=== PATIENT | female | born 1980 | race American Indian/Alaskan Native ===

== ENCOUNTER 2019-05-25 10:56 | Inpatient (IN) | payer MEDICARE ==
[2019-05-25] MEDS ORDERED: oxyCODONE /ACETAMINOPHEN 5-325MG TAB PO PRN (11:55)
[2019-05-25] MEDS ORDERED: ACETAMINOPHEN 325 MG TAB PO PRN (11:55)
[2019-05-25] MEDS ORDERED: D5W/0.2% NACL 1,000 ML IV SCH (14:00)
--- NOTE | 2019-05-25 14:55 | XRay Report ---
ABDOMEN, 2 VIEWS INDICATION / CLINICAL INFORMATION: ABDOMINAL PAIN, N V. COMPARISON: None available. FINDINGS: The bowel gas pattern is normal. Moderate amount retained stool is present within the colon. No free air. No abnormal calcifications identified. Visualized osseous structures are within normal limits. IMPRESSION: Probable mild constipation. Signer Name: Janette Mcginnis MD Signed: 05/25/2019 2:50 PM Workstation Name: [id number]
[2019-05-25] MEDS: HYDROmorphone 1 MG/1 ML INJ IV PRN ×3 (15:31→23:20)
[2019-05-25] MEDS: diphenhydrAMINE 50 MG/ML VIAL IV PRN ×3 (15:31→23:19)
[2019-05-25] MEDS: MECLIZINE 25 MG TAB PO SCH ×2 (15:32→20:48)
[2019-05-25] MEDS: ONDANSETRON 4 MG/2 ML INJ IV PRN ×2 (15:32→22:29)
[2019-05-25] MEDS: D5W/0.2% NACL 1,000 ML IV SCH ×2 (15:33→23:16)
[2019-05-25 15:36] LABS: Alanine Aminotransferase 11 units/L (7-56); Albumin 3.7 g/dL (3.9-5); BUN/Creatinine Ratio 12; Blood Urea Nitrogen 7 mg/dL (7-17); Calcium 8.6 mg/dL (8.4-10.2); Hemolysis Index 19
[2019-05-25 16:01] LABS: Hematocrit 34.3 % (30.3-42.9); Mean Corpuscular HGB Conc 32 % (30-34); Mean Corpuscular Volume 74 fl (79-97); Red Blood Count 4.62 M/mm3 (3.65-5.03)
[2019-05-25 16:02] LABS: Platelet Count 655 K/mm3 (140-440); Red Cell Distribution Width 30.6 % (13.2-15.2)
[2019-05-25 17:03] LABS: Basophils % (Manual) 0 % (0.0-1.8); Eosinophils % (Manual) 0 % (0.0-4.3); Total Cells Counted 100
[2019-05-25 17:04] LABS: Anisocytosis 1+; Dimorphic RBC Yes; Hypochromasia 1+; Schistocytes 1+; Sickle Cells Rare
[2019-05-25 17:05] LABS: Target Cells 1+
[2019-05-25] MEDS: oxyCODONE ER 20 MG TAB PO SCH (22:29)
[2019-05-26] MEDS: HYDROmorphone 1 MG/1 ML INJ IV PRN ×9 (03:13→21:40)
[2019-05-26] MEDS: diphenhydrAMINE 50 MG/ML VIAL IV PRN ×9 (03:13→21:40)
[2019-05-26] MEDS: D5W/0.2% NACL 1,000 ML IV SCH ×5 (03:14→22:33)
[2019-05-26] MEDS: ONDANSETRON 4 MG/2 ML INJ IV PRN ×3 (06:26→18:20)
[2019-05-26] MEDS: MECLIZINE 25 MG TAB PO SCH ×3 (08:03→20:49)
[2019-05-26] MEDS: oxyCODONE ER 20 MG TAB PO SCH ×2 (09:27→22:32)
[2019-05-26] MEDS ORDERED: PROMETHAZINE 25 MG TAB PO PRN (11:31)
--- NOTE | 2019-05-26 15:33 | History and Physical Report ---
History of Present Illness Date of examination: 05/25/19 Date of admission: 05/25/19 13:37 Chief complaint: ABD pain, diffuse joint pain, intractable N/V, vertigo.Also today complaints of right ear ache. History of present illness: As above, patient presented to the office, with complaints as above.She was admitted to the hospital, for sxs management, and control.Once patient feels better, she will be d/c homeasap, in the mid of covid 19 pandemic. Past History Past Medical History: anemia Social history: no significant social history, lives with family Family history: no significant family history Medications and Allergies Allergies Allergy/AdvReac Type Severity Reaction Status Date / Time acetaminophen [From Lortab] Allergy BREAKOUT Verified 02/19/15 07:35 W/ WHELPS hydrocodone bitartrate Allergy BREAKOUT Verified 02/19/15 07:35 [From Lortab] W/ WHELPS ketorolac tromethamine Allergy BREAKOUT Verified 02/19/15 07:35 [From Toradol] W/ WHELPS ON BODY meperidine HCl [From Demerol] Allergy Seizure Verified 02/19/15 07:35 Penicillins Allergy Swelling/WHELPS Verified 02/19/15 07:35 ON BODY Home Medications Medication Instructions Recorded Confirmed Last Taken Type Oxycodone HCl [Oxycontin] 40 mg PO BID 02/19/15 05/25/19 04/22/15 05:30 History 40 mg Promethazine [Phenergan TAB] 25 mg PO Q6HR PRN 02/19/15 05/25/19 04/21/15 22:00 History 25 mg oxyCODONE /ACETAMINOPHEN [Percocet 1 tab PO Q4-6H PRN 02/19/15 05/25/19 04/22/15 05:30 History 5/325 mg] Ciprofloxacin HCl [Ciprofloxacin 500 mg PO BID 04/22/15 05/25/19 04/21/15 22:00 History TAB] guaiFENesin [Mucinex] 600 mg PO Q12H PRN 04/22/15 05/25/19 04/21/15 22:00 History Active Meds: Active Medications Acetaminophen (Tylenol) 650 mg PO Q8H PRN PRN Reason: Pain MILD(1-3) Diphenhydramine HCl (Benadryl) 12.5 mg IV Q3H PRN PRN Reason: Itching Last Admin: 05/26/19 15:22 Dose: 12.5 mg Documented by: Hydromorphone HCl (Dilaudid) 2 mg IV Q3H PRN PRN Reason: Pain , Severe (7-10) Last Admin: 05/26/19 15:22 Dose: 2 mg Documented by: Dextrose/Sodium Chloride (D5ns 0.2%) 1,000 mls @ 250 mls/hr IV DIRECT [facility] Last Admin: 05/26/19 14:06 Dose: 250 mls/hr Documented by: Meclizine HCl (Antivert) 25 mg PO TID [facility] Last Admin: 05/26/19 13:59 Dose: 25 mg Documented by: Ondansetron HCl (Zofran) 4 mg IV Q6H PRN PRN Reason: Nausea And Vomiting Last Admin: 05/26/19 12:31 Dose: 4 mg Documented by: Oxycodone HCl (Oxycontin) 40 mg PO Q12HR [facility] Last Admin: 05/26/19 09:27 Dose: 40 mg Documented by: Oxycodone/Acetaminophen (Percocet 5/325) 2 tab PO Q6H PRN PRN Reason: Pain, Moderate (4-6) Promethazine HCl (Phenergan) 25 mg PO Q6H PRN PRN Reason: Nausea And Vomiting Sodium Chloride (Sodium Chloride Flush Syringe 10 Ml) 10 ml IV BID [facility] Last Admin: 05/26/19 09:33 Dose: 10 ml Documented by: Sodium Chloride (Sodium Chloride Flush Syringe 10 Ml) 10 ml IV PRN PRN PRN Reason: LINE FLUSH Last Admin: 05/26/19 06:29 Dose: 10 ml Documented by: Review of Systems Constitutional: fatigue, weakness, malaise, chronic pain Eyes: bilateral: other (vertigo.) Ears, nose, mouth and throat: ear pain, nasal congestion, sinus pressure Breasts: deferred Cardiovascular: syncope Gastrointestinal: nausea, vomiting Musculoskeletal: low back pain Neurological: gait dysfunction Exam - Constitutional Vitals: Temp Pulse Resp BP Pulse Ox 98.2 F 71 16 104/46 98 05/26/19 11:12 05/26/19 11:12 05/26/19 11:12 05/26/19 11:12 05/26/19 11:12 General appearance: Present: mild distress, well-nourished - EENT Eyes: Present: PERRL ENT: hearing intact, clear oral mucosa - Neck Neck: Present: supple, normal ROM - Respiratory Respiratory effort: normal Respiratory: bilateral: CTA - Cardiovascular Heart Sounds: Present: S1 & S2. Absent: rub, click - Extremities Extremities: pulses symmetrical, No edema Peripheral Pulses: within normal limits - Abdominal General gastrointestinal: Present: soft, non-tender, non-distended, normal bowel sounds Female genitourinary: Present: deferred - Rectal Rectal Exam: deferred - Integumentary Integumentary: Present: clear, warm, dry - Musculoskeletal Musculoskeletal: generalized weakness - Psychiatric Psychiatric: appropriate mood/affect, intact judgment & insight - Neurologic Neurologic: CNII-XII intact, moves all extremities Results - Labs CBC & Chem 7: 05/25/19 Unknown 05/25/19 Unknown Labs: Abnormal lab results 05/25/19 05/25/19 Range/Units Unknown Unknown MCV 74 L (79-97) fl MCH 24 L (28-32) pg RDW 30.6 H (13.2-15.2) % Plt Count 655 H (140-440) K/mm3 Seg Neuts % (Manual) 81.0 H (40.0-70.0) % Lymphocytes % (Manual) 11.0 L (13.4-35.0) % Monocytes % (Manual) 8.0 H (0.0-7.3) % Seg Neutrophils # Man 8.1 H (1.8-7.7) K/mm3 Lymphocytes # (Manual) 1.1 L (1.2-5.4) K/mm3 Sodium 135 L (137-145) mmol/L Creatinine 0.6 L (0.7-1.2) mg/dL Glucose 116 H (65-100) mg/dL Albumin 3.7 L (3.9-5) g/dL Assessment and Plan - Patient Problems (1) Vertigo Current Visit: Yes Status: Acute Plan to address problem: antivert (2) Right ear pain Current Visit: Yes Status: Acute Plan to address problem: tx for inner ear pain./ (3) Intractable nausea and vomiting Current Visit: Yes Status: Acute Plan to address problem: antiemetic (4) Intractable nausea and vomiting Current Visit: Yes Status: Acute Plan to address problem: anti emetic. (5) Sickle cell anemia with pain Current Visit: Yes Status: Acute Plan to address problem: monitor labs.
[2019-05-26] MEDS: CLINDAMYCIN 150 MG CAP PO SCH ×2 (18:20→22:32)
[2019-05-26] MEDS: TOBRADEX 0.3-0.1% OPHTH SUSP 2.5ML OU SCH (18:21)
[2019-05-26] MEDS: MAGNESIUM HYDROXIDE (MOM) ORAL LIQD UDC PO PRN (22:38)
[2019-05-27] MEDS: diphenhydrAMINE 50 MG/ML VIAL IV PRN ×7 (00:46→23:18)
[2019-05-27] MEDS: TOBRADEX 0.3-0.1% OPHTH SUSP 2.5ML OU SCH ×4 (00:46→18:19)
[2019-05-27] MEDS: HYDROmorphone 1 MG/1 ML INJ IV PRN ×6 (00:47→18:19)
[2019-05-27] MEDS: ONDANSETRON 4 MG/2 ML INJ IV PRN ×4 (00:52→23:19)
[2019-05-27] MEDS: D5W/0.2% NACL 1,000 ML IV SCH ×4 (02:42→18:20)
[2019-05-27] MEDS: MECLIZINE 25 MG TAB PO SCH ×3 (07:49→20:34)
[2019-05-27] MEDS: CLINDAMYCIN 150 MG CAP PO SCH ×4 (09:52→21:24)
[2019-05-27] MEDS: oxyCODONE ER 20 MG TAB PO SCH ×2 (09:52→21:23)
--- NOTE | 2019-05-27 19:15 | Progress Note ---
Assessment and Plan - Patient Problems (1) Vertigo Current Visit: Yes Status: Acute Plan to address problem: antivert (2) Right ear pain Current Visit: Yes Status: Acute Plan to address problem: tx for inner ear pain./ (3) Intractable nausea and vomiting Current Visit: Yes Status: Acute Plan to address problem: antiemetic (4) Intractable nausea and vomiting Current Visit: Yes Status: Acute Plan to address problem: anti emetic. (5) Sickle cell anemia with pain Current Visit: Yes Status: Acute Plan to address problem: monitor labs. Subjective Date of service: 05/27/19 Interval history: Patient seen/examined, resting in bed, pain still rated at 7/10, will try TRAVEL RN, also not enough staff to be attending to per demand. Objective - Constitutional Vitals: Vital Signs - 12hr 05/27/19 05/27/19 05/27/19 08:00 10:00 11:30 Temperature 98.3 F 98.6 F Pulse Rate 74 85 80 Pulse Rate [ 74 Left Dorsalis Pedis] Pulse Rate [ 74 Left Radial] Pulse Rate [ 74 Right Dorsalis Pedis] Pulse Rate [ 74 Right Radial] Respiratory 19 19 18 Rate Blood Pressure 112/53 Blood Pressure 115/53 152/64 [Left] O2 Sat by Pulse 2 L 99 Oximetry 05/27/19 16:21 Temperature 97.4 F L Pulse Rate 81 Pulse Rate [ Left Dorsalis Pedis] Pulse Rate [ Left Radial] Pulse Rate [ Right Dorsalis Pedis] Pulse Rate [ Right Radial] Respiratory 18 Rate Blood Pressure 110/57 Blood Pressure [Left] O2 Sat by Pulse 95 Oximetry General appearance: Present: mild distress, well-nourished - EENT Eyes: PERRL, EOM intact ENT: hearing intact, clear oral mucosa Ears: bilateral: normal - Neck Neck: supple, normal ROM - Respiratory Respiratory effort: normal Respiratory: bilateral: CTA - Breasts Breasts: deferred - Cardiovascular Rhythm: regular Heart Sounds: Present: S1 & S2. Absent: gallop, rub Extremities: pulses intact, No edema, normal color, Full ROM - Gastrointestinal General gastrointestinal: Present: soft, non-tender, non-distended, normal bowel sounds Rectal Exam: deferred - Genitourinary Female genitourinary: deferred - Integumentary Integumentary: clear, warm, dry - Musculoskeletal Musculoskeletal: 1, strength equal bilaterally - Neurologic Neurologic: moves all extremities - Psychiatric Psychiatric: memory intact, appropriate mood/affect, intact judgment & insight - Labs CBC & Chem 7: 05/25/19 Unknown 05/25/19 Unknown
[2019-05-27] MEDS ORDERED: NALOXONE 0.4 MG/1 ML INJ IV PRN (19:20)
[2019-05-27] MEDS ORDERED: HYDROmorphone/NS 6 MG/30 ML PCA INJ IV SCH (20:00)
[2019-05-27] MEDS: HYDROmorphone 2 MG/1 ML INJ IV PRN (23:18)
[2019-05-28] MEDS: D5W/0.2% NACL 1,000 ML IV SCH ×3 (00:09→17:04)
[2019-05-28] MEDS: TOBRADEX 0.3-0.1% OPHTH SUSP 2.5ML OU SCH ×4 (00:35→17:04)
[2019-05-28] MEDS: diphenhydrAMINE 50 MG/ML VIAL IV PRN ×6 (02:35→20:56)
[2019-05-28] MEDS: HYDROmorphone 2 MG/1 ML INJ IV PRN ×6 (02:35→20:56)
[2019-05-28] MEDS: ONDANSETRON 4 MG/2 ML INJ IV PRN ×3 (05:29→20:57)
[2019-05-28] MEDS: MECLIZINE 25 MG TAB PO SCH ×3 (09:05→20:56)
[2019-05-28] MEDS: CLINDAMYCIN 150 MG CAP PO SCH ×4 (09:05→22:56)
[2019-05-28] MEDS: oxyCODONE ER 20 MG TAB PO SCH ×3 (10:00→22:56)
--- NOTE | 2019-05-28 13:40 | XRay Report ---
Paranasal sinuses 3 views Indication: facial sinus fullness/psin Findings: The paranasal sinuses appear clear without air-fluid levels or mucosal thickening. No radiographic ev idence for sinusitis. Signer Name: Wilian Pak MD Signed: 05/28/2019 1:36 PM Workstation Name: [id number]
[2019-05-28] MEDS: MAGNESIUM HYDROXIDE (MOM) ORAL LIQD UDC PO PRN (17:07)
--- NOTE | 2019-05-28 22:25 | Discharge Summary ---
Providers - Providers Date of Admission: 05/25/19 13:37 Date of discharge: 05/29/19 Attending physician: KILLIAN CHANG Primary care physician: KILLIAN CHANG Hospitalization Reason for admission: SCD/pain crisis/anemia/ intrctable n/v/ dehydration. Condition: Stable Hospital course: PaTIENT PRESENTED TO THE OFFICE, WITH cxc as above, and admitted to the hospital, for sxs management ,and control. she was treated with hydration, pain meds, anti emetic. she also complained of facial sinus congestion, and vertigo, most of which is now stable.Will d/c home tomorrow afternoon. Disposition: DC- TO HOME OR SELFCARE - Discharge Diagnoses (1) Vertigo Status: Acute (2) Right ear pain Status: Acute (3) Intractable nausea and vomiting Status: Resolved (4) Intractable nausea and vomiting Status: Resolved (5) Sickle cell anemia with pain Status: Inactive Core Measure Documentation - Palliative Care Palliative Care/ Comfort Measures: Not Applicable - Core Measures Any of the following diagnoses?: none Exam - Constitutional Vitals: Temp Pulse Resp BP Pulse Ox 99.1 F 89 16 103/54 95 05/28/19 20:11 05/28/19 20:11 05/28/19 20:11 05/28/19 20:11 05/28/19 20:11 General appearance: Present: mild distress, well-nourished - EENT Eyes: Present: PERRL ENT: hearing intact, clear oral mucosa - Neck Neck: Present: supple, normal ROM - Respiratory Respiratory effort: normal Respiratory: bilateral: CTA - Cardiovascular Heart Sounds: Present: S1 & S2. Absent: rub, click - Extremities Extremities: pulses symmetrical, No edema Peripheral Pulses: within normal limits - Abdominal General gastrointestinal: Present: soft, non-tender, non-distended, normal bowel sounds Female genitourinary: Present: deferred - Rectal Rectal Exam: deferred - Integumentary Integumentary: Present: clear, warm, dry - Musculoskeletal Musculoskeletal: gait normal, strength equal bilaterally - Psychiatric Psychiatric: appropriate mood/affect, intact judgment & insight - Neurologic Neurologic: CNII-XII intact, moves all extremities Plan Activity: no restrictions Diet: regular Follow up with: KILLIAN CHANG DO [Primary Care Provider] - 7 Days
[2019-05-29] MEDS: HYDROmorphone 2 MG/1 ML INJ IV PRN ×4 (00:25→09:29)
[2019-05-29] MEDS: diphenhydrAMINE 50 MG/ML VIAL IV PRN ×4 (00:25→09:35)
[2019-05-29] MEDS: TOBRADEX 0.3-0.1% OPHTH SUSP 2.5ML OU SCH ×3 (00:45→12:47)
[2019-05-29] MEDS: ONDANSETRON 4 MG/2 ML INJ IV PRN ×2 (03:10→09:29)
[2019-05-29] MEDS: MECLIZINE 25 MG TAB PO SCH ×2 (08:00→13:44)
[2019-05-29] MEDS: CLINDAMYCIN 150 MG CAP PO SCH ×2 (09:28→13:45)
[2019-05-29] MEDS: oxyCODONE ER 20 MG TAB PO SCH (09:28)
[2019-05-29 12:16] VITALS: BP 118/72
== END 2019-05-29 15:00 | disposition home or self-care (01) | DRG 812 ==
LOC: UNDOADMIN 10:56 → 4A 10:56
PROVIDERS: ADMIT Internal Medicine Hematology & Oncology; ATTEND Internal Medicine Hematology & Oncology
DX: D57.00 Hb-SS disease with crisis, unspecified (principal); H92.01 Otalgia, right ear; E86.0 Dehydration; Z88.5 Allergy status to narcotic agent; Z88.8 Allergy status to other drugs, medicaments and biological substances; Z88.0 Allergy status to penicillin; Z79.899 Other long term (current) drug therapy
CPT/HCPCS: 36415; 70210; 74018; 80053; 85007; 85025; 94760; G0378; J1170; J1200; J1642; J2405; Q0169

== ENCOUNTER 2021-09-17 14:25 | Emergency (ER) | payer MEDICARE ==
[2021-09-17 14:40] VITALS: BP 157/91
--- NOTE | 2021-09-17 14:40 | Emergency Department Report ---
Blank Doc - Documentation Documentation: 41-year-old female that presents with generalized pain which stated is a sickle cell crisis at this time. 1- This is a initial triage assessment/medical screening only. Full assessment and work-up will be completed once the patient is in proper hospital gown, ED bed and in a private room setting. This initial assessment/diagnostic orders/clinical plan/ treatment(s) is/are subject to change based on pt's health status, clinical progression and re-assessment by fellow clinical providers in the ED. Further treatment and workup at subsequent clinical providers discretion. Patient/guardians urged not to elope from ED as their condition may be serious if not clinically assessed and managed. 2-labs The patient was evaluated in the emergency department for symptoms described in the history of present illness. He/she was evaluated in the context of the global COVID-19 pandemic, which necessitated consideration that the patient might be at risk for infection with the virus that causes COVID-19. Institutional protocols and algorithms that pertain to the evaluation of patients at risk for COVID-19 are in a state of rapid change based on information released by regulatory bodies including the CDC and federal and state organizations. These policies and algorithms were followed during the patient's care in the emergency department. Please note that these policies, procedures and recommendations changed on a rapid basis.
== END 2021-09-17 16:00 | disposition left against medical advice (07) ==
LOC: ED 14:25
DX: D57.219 Sickle-cell/Hb-C disease with crisis, unspecified (principal); Z53.21 Procedure and treatment not carried out due to patient leaving prior to being seen by health care provider
CPT/HCPCS: 99281